=== PATIENT | male | born 1985 | race Caucasian/White ===

== ENCOUNTER → 2019-05-23 13:42 | Outpatient (CLI) | payer OTHER, SELFPAY ==
[2019-05-23 15:32] LABS: Urine N gonorrhoeae NOT DETECTED
[2019-05-23 15:33] LABS: Urine Chlamydia NOT DETECTED
[2019-05-23 16:38] LABS: HIV 1 & 2 Ab/Ag 4th Gen Combo NEGATIVE (NEGATIVE); Hep C Virus Ab w/Reflex Quant NEGATIVE s/c (NEGATIVE)
[2019-05-23 17:16] LABS: Hepatitis B Surface Antigen NEGATIVE s/c (NEGATIVE)
[2019-05-25 13:32] LABS: HSV 1 IgM Screen Negative (Negative); HSV 2 IgM Screen Negative (Negative)
[2019-05-25 19:50] LABS: RPR Screen Nonreactive (Nonreactive)
== END ==
PROVIDERS: Visit Provider Physician Assistant
DX: Z11.3 Encounter for screening for infections with a predominantly sexual mode of transmission (principal)
CPT/HCPCS: 36415; 86592; 86695; 86696; 86803; 87340; 87389; 87491; 87591